=== PATIENT | female | born 1970 | race Caucasian/White ===

== ENCOUNTER → 2019-01-03 | Outpatient (CLI) | payer MEDICARE, MEDICAID ==
--- NOTE | 2019-01-03 14:04 | RADIOLOGY REPORT (SQ) ---
EXAM DESCRIPTION: L SPINE WHOLE COMPLETED DATE/TIME: 01/03/2019 12:49 pm REASON FOR STUDY: LOW BACK PAIN M54.5 LOW BACK PAIN M25.552 PAIN IN LEFT HIP COMPARISON: None. NUMBER OF VIEWS: Five views including obliques. TECHNIQUE: AP, lateral, oblique, and sacral radiographic images acquired of the lumbar spine. LIMITATIONS: None. FINDINGS: MINERALIZATION: Normal. SEGMENTATION: Normal. No transitional anatomy. ALIGNMENT: Normal. VERTEBRAE: Maintained height. No fracture or worrisome bone lesion. DISCS: Preserved height. No significant osteophytes or end plate irregularity. POSTERIOR ELEMENTS: Pedicles and facets are intact. No pars defect or posterior arch defects. HARDWARE: None in the spine. PARASPINAL SOFT TISSUES: Normal. PELVIS: Intact as visualized. No fractures or worrisome bone lesions. SI joints intact. OTHER: No other significant finding. IMPRESSION: NORMAL 5 VIEW LUMBAR SPINE. TECHNICAL DOCUMENTATION: JOB ID: [id number] [employer]- All Rights Reserved Reading location - IP/workstation name: [email or web address]
--- NOTE | 2019-01-03 14:08 | RADIOLOGY REPORT (SQ) ---
EXAM DESCRIPTION: HIP LEFT AP/LATERAL COMPLETED DATE/TIME: 01/03/2019 12:49 pm REASON FOR STUDY: L HIP PAIN M54.5 LOW BACK PAIN M25.552 PAIN IN LEFT HIP COMPARISON: None. NUMBER OF VIEWS: Two views. TECHNIQUE: AP pelvis and additional frog-leg view of the left hip. LIMITATIONS: None. FINDINGS: MINERALIZATION: Normal. LEFT HIP: No fracture or dislocation. No worrisome bone lesions. RIGHT HIP: No fracture or dislocation. No worrisome bone lesions. PUBIS AND ISCHIUM: No fracture. PELVIS: No fracture. SACRUM: No fracture or dislocation. No worrisome bone lesions. LOWER LUMBAR SPINE: No fracture or dislocation. No worrisome bone lesions. No significant disc disea se. SOFT TISSUES: No findings. OTHER: No other significant finding. IMPRESSION: NEGATIVE STUDY OF THE LEFT HIP AND PELVIS. NO RADIOGRAPHIC EVIDENCE OF ACUTE INJURY. TECHNICAL DOCUMENTATION: JOB ID: [id number] [employer]- All Rights Reserved Reading location - IP/workstation name: [email or web address]
== END ==
LOC: RAD 11:22
PROVIDERS: ATTEND Physician Assistant
DX: M54.5 Low back pain (principal); M25.552 Pain in left hip
CPT/HCPCS: 72110

== ENCOUNTER 2019-01-10 05:49 | Observation (INO) | payer MEDICARE, MEDICAID ==
[2019-01-10] MEDS ORDERED: ONDANSETRON HCL INJ/PF 4 MG/2 ML SDV IV ONE (06:31)
[2019-01-10] MEDS ORDERED: MORPHINE SULFATE 10 MG/ML INJ IV ONE (06:31)
[2019-01-10] MEDS ORDERED: NORMAL SALINE 1000 ML 1,000 ML IV ONE ×2 (06:31→09:23)
--- NOTE | 2019-01-10 06:43 | ER Document Report ---
ED General - General Chief Complaint: Abdominal Pain Stated Complaint: ABDOMINAL PAIN Time Seen by Provider: 01/10/19 06:14 TRAVEL OUTSIDE OF THE [place] IN LAST 30 DAYS: No - HPI Notes: Patient presents emergency department for evaluation of right lower quadrant pain. It started suddenly 2 days ago when she was getting out of a chair. It was intermittent and dull at first, now it is constant with intermittent stabbing. She has had some nausea but no emesis. Diminished appetite. Last bowel movement was 2 days ago. She states is not completely abnormal for her to have a space between these. She denies any dysuria, hematuria, urinary frequency. She has had a hysterectomy. She states her pain was made worse by the bumps in the car ride over here. - Related Data Allergies/Adverse Reactions: lithium Allergy (Verified 01/10/19 06:28) Past Medical History - General Information source: Patient - Social History Smoking Status: Former Smoker Family History: Malignancy - Bladder lung cancer in father Patient has suicidal ideation: No Patient has homicidal ideation: No Neurological Medical History: Reports: Hx Migraine Renal/ Medical History: Denies: Hx Peritoneal Dialysis Musculoskeletal Medical History: Reports Hx Arthritis Past Surgical History: Reports: Hx Section, Hx Hysterectomy, Hx Tubal Ligation Review of Systems - Review of Systems Constitutional: No symptoms reported EENT: No symptoms reported Cardiovascular: No symptoms reported Respiratory: No symptoms reported Gastrointestinal: See HPI Genitourinary: No symptoms reported Female Genitourinary: No symptoms reported Musculoskeletal: No symptoms reported Skin: No symptoms reported Neurological/Psychological: No symptoms reported Physical Exam - Vital signs Vitals: Temp Pulse Resp BP Pulse Ox 98.1 F 86 18 173/104 H 98 01/10/19 05:55 01/10/19 05:55 01/10/19 05:55 01/10/19 05:55 01/10/19 05:55 - Notes Notes: Vital signs reviewed, please refer to chart. Patient is normocephalic, atraumatic. Pupils equal round, reactive to light. Neck is supple without men ingismus. Heart is regular rate and rhythm. Lungs are clear to auscultation bilaterally. Abdomen is soft. Moderate right lower quadrant tenderness without rebound or guarding. Mild right upper quadrant and epigastric tendedrness to palpation. Negative psoas, negative Rovsing's. Extremities without cyanosis, clubbing, edema. Peripheral pulses are equal. Skin is warm and dry. Patient is awake, alert, neurological exam is nonfocal. Course - Re-evaluation Re-evalutation: 01/10/19 08:11 Patient presents to the emergency department for evaluation of abdominal pain. She points to the right lower quadrant as the source of the majority of her pain, but she does not fact have some right upper quadrant epigastric tenderness as well. Laboratory investigations ordered. Her lipase is found to be just over 3 times the upper limits of normal. CT scan was found to be unremarkable. Serial abdominal exams remain tender but nonsurgical. She does still have her gallbladder. Given this information I did order her right upper quadrant ultrasound. Patient is comfortable, will continue to follow. 01/10/19 09:22 Ultrasound of the right upper quadrant failed to reveal any significant abnormalities. Patient continues to have some pain. Spoke with Dr. Doyle who agrees with admission of the patient. I then gave report to Dr. Matias, he will admit the patient for further care. Further pain medication and IV fluids ordered, patient will be transferred to the floor. - Vital Signs Vital signs: Temp Pulse Resp BP Pulse Ox 98.1 F 86 18 161/90 H 95 01/10/19 05:55 01/10/19 05:55 01/10/19 05:55 01/10/19 08:01 01/10/19 08:01 - Laboratory Result Diagrams: 01/10/19 06:14 01/10/19 06:52 Laboratory results interpreted by me: 01/10/19 06:52 Est GFR (Non-Af Amer) 57 L Lipase 926.6 H Discharge - Discharge Clinical Impression: Acute pancreatitis Condition: Stable Disposition: ADMITTED OBSERVATION Admitting Provider: Isis Matias Unit Admitted: Medical Floor
[2019-01-10 07:05] LABS: ABSOLUTE BASOPHILS # (AUTO) 0.1 10^3/uL (0.0-0.2); ABSOLUTE EOSINOPHILS # (AUTO) 0.2 10^3/uL (0.0-0.6); ABSOLUTE LYMPHOCYTES (AUTO) 2.2 10^3/uL (0.5-4.7); ABSOLUTE MONOCYTES (AUTO) 0.6 10^3/uL (0.1-1.4); ABSOLUTE NEUT (AUTO) 4.1 10^3/uL (1.7-8.2); BASOPHILS % (AUTO) 0.8 % (0-2); EOSINOPHILS % (AUTO) 2.8 % (0-6); HEMOGLOBIN 14.1 g/dL (12.0-15.5); LYMPHOCYTES % (AUTO) 30.2 % (13-45); MEAN CORPUSCULAR HEMOGLOBIN 31.5 pg (27.0-33.4); MEAN CORPUSCULAR HGB CONC 35.1 g/dL (32.0-36.0); MEAN CORPUSCULAR VOLUME 90 fl (80-97); MONOCYTES % (AUTO) 8.3 % (3-13); PLATELET COUNT 250 10^3/uL (150-450); RED BLOOD COUNT 4.46 10^6/uL (3.72-5.28); SEGMENTED NEUTROPHILS % (AUTO) 57.9 % (42-78); TOTAL CELLS COUNTED % (AUTO) 100 %; WHITE BLOOD COUNT 7.1 10^3/uL (4.0-10.5)
[2019-01-10 07:26] LABS: ALANINE AMINOTRANSFERASE 18 U/L (9-52); ALBUMIN 4.1 g/dL (3.5-5.0); ALKALINE PHOSPHATASE 100 U/L (38-126); ANION GAP 11 (5-19); ASPARTATE AMINO TRANSFERASE 21 U/L (14-36); BILIRUBIN,DIRECT 0.1 mg/dL (0.0-0.4); BILIRUBIN,TOTAL 0.4 mg/dL (0.2-1.3); BLOOD UREA NITROGEN 16 mg/dL (7-20); CALCIUM 9.4 mg/dL (8.4-10.2); CARBON DIOXIDE 23 mmol/L (22-30); CHLORIDE 107 mmol/L (98-107); GLUCOSE 99 mg/dL (75-110); LIPASE 926.6 U/L (23-300); POTASSIUM 3.6 mmol/L (3.6-5.0); SODIUM 140.6 mmol/L (137-145); TOTAL PROTEIN 7.4 g/dL (6.3-8.2)
--- NOTE | 2019-01-10 07:34 | RADIOLOGY REPORT (SQ) ---
EXAM DESCRIPTION: CT ABDOMEN PELVIS WITHOUT IV CONTRAST COMPLETED DATE/TME: 01/10/2019 06:31 CLINICAL HISTORY: RLQ pain COMPARISON: None Available. TECHNIQUE: CT of the abdomen and pelvis without IV contrast. Evaluation of the solid organs and vasculature is suboptimal due to lack of IV contrast. DLP: 493.5 mGy-cm FINDINGS: Lung Bases: The visualized lung bases are clear. Bones: No destructive bone lesions identified. Abdomen: Liver: The liver has normal size and density. Gallbladder: No calcified gallstones. Spleen, Pancreas, and Adrenal Glands: The spleen, pancreas, and adrenal glands are unremarkable. Kidneys: The kidneys have normal size and contour without evidence of hydronephrosis. No obstructing ureteral calculi. Vasculature: Aortoiliac atherosclerosis. IVC is unremarkable. Stomach: The stomach and duodenum have normal course. Other: No free intraperitoneal air. No free fluid or lymphadenopathy. Pelvis: Bladder: Urinary bladder is unremarkable. Bowel: No dilated loops of large or small bowel. Appendix: Normal appendix. Pelvis: Prior hysterectomy. IMPRESSION: 1. No acute inflammatory or obstructive process identified. This exam was performed according to our departmental dose-optimization program, which includes automated exposure control, adjustment of the mA and/or kV according to patient size and/or use of iterative reconstruction technique.
[2019-01-10 07:36] LABS: APPEARANCE,URINE SLIGHTLY-CLOUDY; BILIRUBIN,URINE NEGATIVE (NEGATIVE); COLOR,URINE YELLOW; GLUCOSE, URINE NEGATIVE (NEGATIVE); KETONES,URINE NEGATIVE (NEGATIVE); LEUKOCYTE ESTERASE,URINE NEGATIVE (NEGATIVE); NITRITE,URINE NEGATIVE (NEGATIVE); PROTEIN,URINE NEGATIVE (NEGATIVE); URINE SPECIFIC GRAVITY 1.009; UROBILINOGEN,URINE NEGATIVE mg/dL (<2.0)
--- NOTE | 2019-01-10 09:12 | RADIOLOGY REPORT (SQ) ---
EXAM DESCRIPTION: U/S ABDOMEN LIMITED W/O DOP COMPLETED DATE/TIME: 01/10/2019 9:03 am REASON FOR STUDY: eval RUQ, elevated lipase COMPARISON: CT abdomen pelvis 01/10/2019 TECHNIQUE: Dynamic and static grayscale images acquired of the abdomen and recorded on PACS. Additio nal selected color Doppler and spectral images recorded. LIMITATIONS: Midline bowel gas FINDINGS: PANCREAS: Midline pancreas unremarkable LIVER: No masses. Echotexture normal. LIVER VASCULATURE: Normal directional flow of the main portal vein and hepatic veins. GALLBLADDER: No stones. Normal wall thickness. No pericholecystic fluid. ULTRASOUND-DETECTED JUÁREZ'S SIGN: Negative. INTRAHEPATIC DUCTS AND COMMON DUCT: CBD and intrahepatic ducts normal caliber. No filling defects. INFERIOR VENA CAVA: Normal flow. AORTA: No aneurysm. RIGHT KIDNEY: Normal size. Normal echogenicity. No solid or suspicious masses. No hydronephrosis. No calcifications. PERITONEAL AND RIGHT PLEURAL SPACE: No ascites or effusions. OTHER: No other significant findings. IMPRESSION: NORMAL RIGHT UPPER QUADRANT ULTRASOUND. TECHNICAL DOCUMENTATION: JOB ID: [id number] [employer]- All Rights Reserved Reading location - IP/workstation name: [email or web address]
[2019-01-10] MEDS ORDERED: HYDROMORPHONE HCL INJ/PF 2 MG/ML AMPULE IV ONE (09:18)
[2019-01-10] MEDS ORDERED: GLUCAGON,HUMAN RECOMB 1 MG INJ SUBCUT PRN (10:09)
[2019-01-10] MEDS ORDERED: ONDANSETRON HCL INJ/PF 4 MG/2 ML SDV IV PRN (10:09)
[2019-01-10] MEDS ORDERED: DEXTROSE 50%-WATER 25 GM/50 ML DISP.SYRIN IV PRN ×2 (10:09)
[2019-01-10] MEDS ORDERED: DEXTROSE 40% GEL 15 GM TUBE PO PRN ×2 (10:09)
[2019-01-10 11:28] LABS: CHOLESTEROL 307.35 mg/dL (0-200); TRIGLYCERIDES 135 mg/dL (<150)
[2019-01-10 11:39] LABS: DIRECT LDL 192 mg/dL (<100)
[2019-01-10] MEDS ORDERED: KETOROLAC TROMETHAMINE INJ/PF 30 MG/1 ML SDV IV ONE (16:30)
--- NOTE | 2019-01-10 16:31 | PDOC H&P ---
History of Present Illness Admission Date/PCP: 01/10/19 09:42 History of Present Illness: SINGH CAMPBELL is a 48 year old female with a history of fibromyalgia and functional abdominal pain who presents to the ER with a history of abdominal pain for the past few days. She felt like it was mostly in the right lower quadrant, but does seem to stop and what she feels like she has now has abdominal pain in the midepigastric region. She describes it as a dull aching pain. Nothing really makes it better or worse. She has not had any changes to her medications. She has not had anything out of the ordinary in her diet. She has been nauseated but no vomiting. No diarrhea. No blood in her stool. Her labs were unremarkable except for a lipase that was a little over 900. CT and abdominal ultrasound were unremarkable. She is being admitted for observation was for some IV fluids. Past Medical History Neurological Medical History: Reports: Migraine Musculoskeltal Medical History: Reports: Arthritis Psychiatric Medical History: Reports: Depression Past Surgical History Past Surgical History: Reports: Section, Hysterectomy, Tubal Ligation Social History Smoking Status: Never Smoker Frequency of Alcohol Use: None Hx Recreational Drug Use: No Drugs: None Hx Prescription Drug Abuse: No - Advance Directive Resuscitation Status: Full Code Family History Family History: Malignancy - Bladder lung cancer in father Parental Family History Reviewed: Yes Children Family History Reviewed: Yes Sibling(s) Family History Reviewed.: Yes Medication/Allergy Home Medications: Duloxetine HCl [Cymbalta] 60 mg PO DAILY 01/10/19 Estrogens,Conjugated [Premarin 0.625 Mg Tablet] 0.625 mg PO DAILY 01/10/19 Gabapentin [Neurontin 300 mg Capsule] 300 mg PO Q8 01/10/19 Hydrocodone/Acetaminophen [Johnson 10-325 mg Tablet] 1 tab PO QID 01/10/19 Topiramate [Trokendi Xr] 100 mg PO QHS 01/10/19 Trazodone HCl [Desyrel 50 mg Tablet] 50 mg PO QHS 01/10/19 Allergies/Adverse Reactions: lithium Allergy (Verified 01/10/19 06:28) Review of Systems All systems: reviewed and no additional remarkable complaints except as stated - All systems reviewed and were negative except as noted in the HPI Physical Exam Vital Signs: Temp Pulse Resp BP Pulse Ox 98.6 F 69 16 153/97 H 100 01/10/19 11:58 01/10/19 11:58 01/10/19 11:58 01/10/19 11:58 01/10/19 11:58 Intake & Output 01/09/19 01/10/19 01/11/19 06:59 06:59 06:59 Intake Total 1999 Balance 1999 Weight 70.6 kg General appearance: PRESENT: no acute distress, cooperative, disheveled, obese Head exam: PRESENT: atraumatic, normocephalic Eye exam: PRESENT: EOMI, PERRLA. ABSENT: conjunctival injection, nystagmus, scleral icterus Ear exam: PRESENT: normal external ear exam Mouth exam: PRESENT: moist, neck supple Teeth exam: PRESENT: poor dentation Throat exam: ABSENT: post pharyngeal erythema Neck exam: PRESENT: full ROM. ABSENT: carotid bruit, JVD, lymphadenopathy, meningismus, tenderness, thyromegaly Respiratory exam: PRESENT: clear to auscultation parth, symmetrical, unlabored. ABSENT: accessory muscle use, crackles, prolonged expiratory phas, rhonchi, tachypnea, wheezes Cardiovascular exam: PRESENT: RRR, +S1, +S2 Pulses: PRESENT: normal carotid pulses Vascular exam: PRESENT: normal capillary refill GI/Abdominal exam: PRESENT: normal bowel sounds, soft. ABSENT: distended, guarding, rebound, tenderness Extremities exam: ABSENT: clubbing, pedal edema Musculoskeletal exam: PRESENT: ambulatory, normal inspection. ABSENT: deformity Neurological exam: PRESENT: alert, awake, oriented to person, oriented to place, oriented to time, oriented to situation, CN II-XII grossly intact. ABSENT: motor sensory deficit Psychiatric exam: PRESENT: anxious Skin exam: PRESENT: dry, warm Results Laboratory Results: 01/10/19 06:14 01/10/19 06:52 01/10/19 01/10/19 01/10/19 06:14 06:14 06:52 WBC 7.1 RBC 4.46 Hgb 14.1 Hct 40.0 MCV 90 MCH 31.5 MCHC 35.1 RDW 12.0 Plt Count 250 Seg Neutrophils % 57.9 Lymphocytes % 30.2 Monocytes % 8.3 Eosinophils % 2.8 Basophils % 0.8 Absolute Neutrophils 4.1 Absolute Lymphocytes 2.2 Absolute Monocytes 0.6 Absolute Eosinophils 0.2 Absolute Basophils 0.1 Sodium Cancelled 140.6 Potassium Cancelled 3.6 Chloride Cancelled 107 Carbon Dioxide Cancelled 23 Anion Gap Cancelled 11 BUN Cancelled 16 Creatinine Cancelled 1.04 Est GFR ( Amer) Cancelled > 60 Est GFR (Non-Af Amer) Cancelled 57 L Glucose Cancelled 99 Calcium Cancelled 9.4 Total Bilirubin Cancelled 0.4 AST Cancelled 21 ALT Cancelled 18 Alkaline Phosphatase Cancelled 100 Total Protein Cancelled 7.4 Albumin Cancelled 4.1 Triglycerides Cholesterol LDL Cholesterol Direct VLDL Cholesterol HDL Cholesterol Lipase Cancelled 926.6 H Urine Color Urine Appearance Urine pH Ur Specific [place] Urine Protein Urine Glucose (UA) Urine Ketones Urine Blood Urine Nitrite Ur Leukocyte Esterase Urine WBC (Auto) Urine RBC (Auto) 01/10/19 01/10/19 06:52 07:05 WBC RBC Hgb Hct MCV MCH MCHC RDW Plt Count Seg Neutrophils % Lymphocytes % Monocytes % Eosinophils % Basophils % Absolute Neutrophils Absolute Lymphocytes Absolute Monocytes Absolute Eosinophils Absolute Basophils Sodium Potassium Chloride Carbon Dioxide Anion Gap BUN Creatinine Est GFR ( Amer) Est GFR (Non-Af Amer) Glucose Calcium Total Bilirubin AST ALT Alkaline Phosphatase Total Protein Albumin Triglycerides 135 Cholesterol 307.35 H LDL Cholesterol Direct 192 H VLDL Cholesterol 27.0 HDL Cholesterol 64 Lipase Urine Color YELLOW Urine Appearance SLIGHTLY-CLOUDY Urine pH 6.0 Ur Specific [place] 1.009 Urine Protein NEGATIVE Urine Glucose (UA) NEGATIVE Urine Ketones NEGATIVE Urine Blood NEGATIVE Urine Nitrite NEGATIVE Ur Leukocyte Esterase NEGATIVE Urine WBC (Auto) 8 Urine RBC (Auto) 2 Impressions: Abdomen/Pelvis CT 01/10/19 06:31 IMPRESSION: 1. No acute inflammatory or obstructive process identified. This exam was performed according to our departmental dose-optimization program, which includes automated exposure control, adjustment of the mA and/or kV according to patient size and/or use of iterative reconstruction technique. Abdomen Ultrasound 01/10/19 08:10 IMPRESSION: NORMAL RIGHT UPPER QUADRANT ULTRASOUND. Assessment and Plan - Diagnosis (1) Acute pancreatitis Qualifiers: Pancreatitis type: unspecified pancreatitis type Acute pancreatitis complication: unspecified Qualified Code(s): K85.90 - Acute pancreatitis without necrosis or infection, unspecified Is this a current diagnosis for this admission?: Yes Plan: No obvious cause at this point. She says that she has not had a drink in 7 years. She does not have a history of gallstones and as noted above the abdominal CT and the abdominal ultrasound were unremarkable. Possible she could have had a small stone and passed it. We will also check her triglycerides. We will give her some IV fluids and some antiemetics. We will repeat her blood work in the morning. - Time Time Spent with patient: 35 or more minutes - Approximately 55 minutes was spent performing history and physical and coordination of care
[2019-01-10] MEDS: RINGERS SOLUTION,LACTATED 1,000 ML IV PRN (16:45)
[2019-01-11] MEDS: RINGERS SOLUTION,LACTATED 1,000 ML IV PRN ×2 (00:05→08:29)
[2019-01-11] MEDS ORDERED: KETOROLAC TROMETHAMINE INJ/PF 30 MG/1 ML SDV IV PRN (00:15)
[2019-01-11 07:02] LABS: ANION GAP 6 (5-19); BLOOD UREA NITROGEN 9 mg/dL (7-20); CALCIUM 9.4 mg/dL (8.4-10.2); CARBON DIOXIDE 25 mmol/L (22-30); CHLORIDE 108 mmol/L (98-107); GLUCOSE 83 mg/dL (75-110); LIPASE 122.4 U/L (23-300); POTASSIUM 3.9 mmol/L (3.6-5.0); SODIUM 138.7 mmol/L (137-145)
--- NOTE | 2019-01-11 16:52 | PDOC DISCHARGE SUMMARY ---
General - Admit/Disc Date/PCP Admission Date/Primary Care Provider: 01/10/19 09:42 Discharge Date: 01/11/19 - Discharge Diagnosis (1) Acute pancreatitis Is this a current diagnosis for this admission?: Yes Summary: Resolved quickly with IV fluids and got rest - Additional Information Resuscitation Status: Full Code Discharge Diet: Cardiac Discharge Activity: Activity As Tolerated Home Medications: Duloxetine HCl [Cymbalta] 60 mg PO DAILY 01/10/19 Estrogens,Conjugated [Premarin 0.625 mg Tablet] 0.625 mg PO DAILY 01/10/19 Gabapentin [Neurontin 300 mg Capsule] 300 mg PO Q8 01/10/19 Hydrocodone/Acetaminophen [[place] 10-325 mg Tablet] 1 tab PO QID 01/10/19 Topiramate [Trokendi Xr] 100 mg PO QHS 01/10/19 Trazodone HCl [Desyrel 50 mg Tablet] 50 mg PO QHS 01/10/19 History of Present Illness History of Present Illness: SINGH CAMPBELL is a 48 year old female with a history of fibromyalgia and functional abdominal pain who presents to the ER with a history of abdominal pain for the past few days. She felt like it was mostly in the right lower quadrant, but does seem to stop and what she feels like she has now has abdominal pain in the midepigastric region. She describes it as a dull aching pain. Nothing really makes it better or worse. She has not had any changes to her medications. She has not had anything out of the ordinary in her diet. She has been nauseated but no vomiting. No diarrhea. No blood in her stool. Her labs were unremarkable except for a lipase that was a little over 900. CT and abdominal ultrasound were unremarkable. She is being admitted for observation was for some IV fluids. Hospital Course Hospital Course: She was put on got rest and given IV fluids. Her lipase returned to normal very quickly. She was able to eat and drink without difficulty. No obvious precipitating factor, possibly had passed a small gallstone. Her LDL was elevated, we talked about statin medication, I recommended that she consider starting 1. Right now she is on Premarin, and given her cholesterol panel recommended that she talk to her doctor about tapering off of it. She verbalized her understanding. Her labs and examination were reassuring and she was discharged in good condition. Physical Exam Vital Signs: Temp Pulse Resp BP Pulse Ox 98.8 F 73 16 169/92 H 100 01/11/19 15:12 01/11/19 15:12 01/11/19 15:12 01/11/19 15:12 01/11/19 15:12 Intake & Output 01/10/19 01/11/19 01/12/19 06:59 06:59 06:59 Intake Total 2917 1260 Balance 2917 1260 Weight 70.6 kg 71.2 kg General appearance: PRESENT: no acute distress, cooperative, disheveled, obese Respiratory exam: PRESENT: clear to auscultation parth, symmetrical, unlabored. ABSENT: accessory muscle use, crackles, prolonged expiratory phas, rhonchi, tachypnea, wheezes Cardiovascular exam: PRESENT: RRR, +S1, +S2 Pulses: PRESENT: normal carotid pulses Vascular exam: PRESENT: normal capillary refill GI/Abdominal exam: PRESENT: normal bowel sounds, soft. ABSENT: distended, guarding, rebound, tenderness Extremities exam: ABSENT: clubbing, pedal edema Musculoskeletal exam: PRESENT: ambulatory, normal inspection. ABSENT: deformity Results Laboratory Results: 01/10/19 06:14 01/11/19 04:59 01/11/19 04:59 Sodium 138.7 Potassium 3.9 Chloride 108 H Carbon Dioxide 25 Anion Gap 6 BUN 9 Creatinine 0.84 Est GFR ( Amer) > 60 Est GFR (Non-Af Amer) > 60 Glucose 83 Calcium 9.4 Lipase 122.4 Impressions: Abdomen/Pelvis CT 01/10/19 06:31 IMPRESSION: 1. No acute inflammatory or obstructive process identified. This exam was performed according to our departmental dose-optimization program, which includes automated exposure control, adjustment of the mA and/or kV according to patient size and/or use of iterative reconstruction technique. Abdomen Ultrasound 01/10/19 08:10 IMPRESSION: NORMAL RIGHT UPPER QUADRANT ULTRASOUND. Qualifiers - * PATIENT BEING DISCHARGED WITH ANY OF THE FOLLOWING DIAGNOSIS: No
[2019-01-11 17:16] VITALS: BP 153/97
== END 2019-01-11 17:50 | disposition home or self-care (01) ==
LOC: ER 05:49 → EH 09:42 → 4W 11:49
PROVIDERS: ADMIT Family Medicine; ATTEND Internal Medicine
DX: K85.90 Acute pancreatitis without necrosis or infection, unspecified (principal); E78.00 Pure hypercholesterolemia, unspecified; M79.7 Fibromyalgia; F32.9 Major depressive disorder, single episode, unspecified; G43.909 Migraine, unspecified, not intractable, without status migrainosus; Z79.899 Other long term (current) drug therapy; Z79.890 Hormone replacement therapy; Z98.51 Tubal ligation status; Z90.710 Acquired absence of both cervix and uterus; Z80.52 Family history of malignant neoplasm of bladder; Z87.891 Personal history of nicotine dependence
CPT/HCPCS: 99285; 96361; 96374; 96375; 36415 ×2; 83690 ×2; 85025; 80048; 80053; 81001; 80061; 76705; 74176; J1885 ×2; J2270; J1170; J2405; J7030; J7120 ×2

== ENCOUNTER 2019-02-09 12:31 | Emergency (ER) | payer MEDICARE, MEDICAID ==
[2019-02-09] MEDS ORDERED: ONDANSETRON 4 MG TAB.RAPDIS PO ONE (13:22)
--- NOTE | 2019-02-09 13:22 | ER Document Report ---
ED Medical Screen (RME) - General Chief Complaint: Abdominal Pain Stated Complaint: FLANK PAIN Time Seen by Provider: 02/09/19 13:21 Mode of Arrival: Ambulatory Information source: Patient Notes: 48-year-old female presents to ED for complaint of right flank pain. She states she has been seen recently for the right flank pain but were not able to respond anything on exam. She states she is just been nausea and vomiting for couple days. She has a history of fibromyalgia arthritis migraines and high blood pressure. She states she has had a hysterectomy. Patient is alert oriented respirations regular and unlabored speaking in full sentences with a even steady gait. I have greeted and performed a rapid initial assessment of this patient. A comprehensive ED assessment and evaluation of the patient, analysis of test results and completion of medical decision making process will be conducted by an additional ED providers. TRAVEL OUTSIDE OF THE [place] IN LAST 30 DAYS: No - Related Data Allergies/Adverse Reactions: lithium Allergy (Verified 02/09/19 12:38) Past Medical History - Social History Chew tobacco use (# tins/day): No Frequency of alcohol use: None Drug Abuse: Prescription drugs Neurological Medical History: Reports: Hx Migraine Renal/ Medical History: Denies: Hx Peritoneal Dialysis Musculoskeltal Medical History: Reports Hx Arthritis Psychiatric Medical History: Reports: Hx Depression Past Surgical History: Reports: Hx Section, Hx Hysterectomy, Hx Tubal Ligation Physical Exam - Vital signs Vitals: Temp Pulse Resp BP Pulse Ox 98.1 F 74 16 159/80 H 98 02/09/19 12:44 02/09/19 12:44 02/09/19 12:44 02/09/19 12:44 02/09/19 12:44 Course - Vital Signs Vital signs: Temp Pulse Resp BP Pulse Ox 98.1 F 74 16 159/80 H 98 02/09/19 12:44 02/09/19 12:44 02/09/19 12:44 02/09/19 12:44 02/09/19 12:44
--- NOTE | 2019-02-09 14:03 | RADIOLOGY REPORT (SQ) ---
EXAM DESCRIPTION: CT ABD/PELVIS NO ORAL OR IV COMPLETED DATE/TIME: 02/09/2019 1:50 pm REASON FOR STUDY: right flank pain COMPARISON: CT abdomen pelvis 01/10/2019 Abdominal ultrasound 01/10/2019 TECHNIQUE: CT scan of the abdomen and pelvis performed without intravenous or oral contrast. Images reviewed with lung, soft tissue, and bone windows. Reconstructed coronal and sagittal MPR images revi ewed. All images stored on PACS. All CT scanners at this facility use dose modulation, iterative reconstruction, and/or weight based d osing when appropriate to reduce radiation dose to as low as reasonably achievable (ALARA). [facility]: Dose Right [facility]: CareDose [facility]: Dose Right [facility]: Teradose 4D [facility]: [employer] RADIATION DOSE: CT Rad equipment meets quality standard of care and radiation dose reduction techniq ues were employed. CTDIvol: 6.8 mGy. DLP: 374 mGy-cm.mGy. LIMITATIONS: None. FINDINGS: LOWER CHEST: No significant findings. No nodules or infiltrates. NON-CONTRASTED LIVER, SPLEEN, ADRENALS: Evaluation limited by lack of IV contrast. No identified sign ificant masses. PANCREAS: No masses. No peripancreatic inflammatory changes. GALLBLADDER: No identified stones by CT criteria. No inflammatory changes to suggest cholecystitis. RIGHT KIDNEY AND URETER: No suspicious masses. Assessment limited by lack of IV contrast. No signif icant calcifications. No hydronephrosis or hydroureter. LEFT KIDNEY AND URETER: No suspicious masses. Assessment limited by lack of IV contrast. No signifi cant calcifications. No hydronephrosis or hydroureter. AORTA AND RETROPERITONEUM: No aneurysm. No retroperitoneal masses or adenopathy. BOWEL AND PERITONEAL CAVITY: No obvious masses or inflammatory changes. No free fluid.Large amount of stool in the colon particularly along the ascending colon and hepatic flexure APPENDIX: Normal. PELVIS, BLADDER, AND ABDOMINAL WALL:No abnormal masses. No free fluid. Bladder normal. Post hysterec sylvia BONES: No significant findings. OTHER: No other significant finding. IMPRESSION: Moderate stool in the right colon. Post hysterectomy. COMMENT: Quality ID # [id number]: Final reports with documentation of one or more dose reduction techniques (e.g., Automated exposure control, adjustment of the mA and/or kV according to patient size, use of iterative reconstruction technique) TECHNICAL DOCUMENTATION: JOB ID: [id number] [employer]- All Rights Reserved Reading location - IP/workstation name: [email or web address]
[2019-02-09 14:14] LABS: APPEARANCE,URINE CLOUDY; BILIRUBIN,URINE NEGATIVE (NEGATIVE); COLOR,URINE YELLOW; GLUCOSE, URINE NEGATIVE (NEGATIVE); KETONES,URINE NEGATIVE (NEGATIVE); LEUKOCYTE ESTERASE,URINE NEGATIVE (NEGATIVE); NITRITE,URINE NEGATIVE (NEGATIVE); PROTEIN,URINE NEGATIVE (NEGATIVE); URINE SPECIFIC GRAVITY 1.008; UROBILINOGEN,URINE NEGATIVE mg/dL (<2.0)
[2019-02-09 14:21] LABS: ABSOLUTE EOSINOPHILS # (AUTO) 0.1 10^3/uL (0.0-0.6); ABSOLUTE LYMPHOCYTES (AUTO) 1.9 10^3/uL (0.5-4.7); ABSOLUTE MONOCYTES (AUTO) 0.5 10^3/uL (0.1-1.4); ABSOLUTE NEUT (AUTO) 3.8 10^3/uL (1.7-8.2); BASOPHILS % (AUTO) 0.8 % (0-2); EOSINOPHILS % (AUTO) 2.2 % (0-6); HEMATOCRIT 39.5 % (36.0-47.0); HEMOGLOBIN 13.6 g/dL (12.0-15.5); LYMPHOCYTES % (AUTO) 29.5 % (13-45); MEAN CORPUSCULAR HEMOGLOBIN 31.2 pg (27.0-33.4); MEAN CORPUSCULAR HGB CONC 34.5 g/dL (32.0-36.0); MEAN CORPUSCULAR VOLUME 91 fl (80-97); PLATELET COUNT 256 10^3/uL (150-450); RED BLOOD COUNT 4.36 10^6/uL (3.72-5.28); RED CELL DISTRIBUTION WIDTH 12.3 % (11.5-14.0); SEGMENTED NEUTROPHILS % (AUTO) 59.5 % (42-78); TOTAL CELLS COUNTED % (AUTO) 100 %; WHITE BLOOD COUNT 6.4 10^3/uL (4.0-10.5)
[2019-02-09 14:40] LABS: ALANINE AMINOTRANSFERASE 21 U/L (9-52); ALBUMIN 4.3 g/dL (3.5-5.0); ALKALINE PHOSPHATASE 83 U/L (38-126); ANION GAP 7 (5-19); ASPARTATE AMINO TRANSFERASE 21 U/L (14-36); BILIRUBIN,DIRECT 0.2 mg/dL (0.0-0.4); BILIRUBIN,TOTAL 0.5 mg/dL (0.2-1.3); BLOOD UREA NITROGEN 15 mg/dL (7-20); CALCIUM 10.2 mg/dL (8.4-10.2); CARBON DIOXIDE 32 mmol/L (22-30); CHLORIDE 101 mmol/L (98-107); GLUCOSE 93 mg/dL (75-110); POTASSIUM 4.5 mmol/L (3.6-5.0); SODIUM 139.6 mmol/L (137-145); TOTAL PROTEIN 7.6 g/dL (6.3-8.2)
--- NOTE | 2019-02-09 15:10 | ER Document Report ---
ED General - General Chief Complaint: Abdominal Pain Stated Complaint: FLANK PAIN Time Seen by Provider: 02/09/19 13:21 Mode of Arrival: Ambulatory Notes: 48-year-old female presents to ED for complaint of right upper quadrant pain. She was recently seen here but there is no evidence of acute pathology. The pain has been present for 1 month but in the last 2 days she has been getting nauseated and vomited every time she ate. She denies fever, chills, headaches, dizziness or lightheadedness, shortness of breath or chest pain, denies constipation, denies urinary symptoms or abnormal vaginal discharge TRAVEL OUTSIDE OF THE [place] IN LAST 30 DAYS: No - Related Data Allergies/Adverse Reactions: lithium Allergy (Verified 02/09/19 12:38) Past Medical History - General Information source: Patient - Social History Smoking Status: Former Smoker Chew tobacco use (# tins/day): No Frequency of alcohol use: None Drug Abuse: Prescription drugs Family History: Malignancy - Bladder lung cancer in father Patient has suicidal ideation: No Patient has homicidal ideation: No Neurological Medical History: Reports: Hx Migraine Renal/ Medical History: Denies: Hx Peritoneal Dialysis Musculoskeletal Medical History: Reports Hx Arthritis Psychiatric Medical History: Reports: Hx Depression Past Surgical History: Reports: Hx Section, Hx Hysterectomy, Hx Tubal Ligation Review of Systems - Review of Systems Constitutional: See HPI EENT: No symptoms reported Cardiovascular: See HPI Respiratory: See HPI Gastrointestinal: See HPI Genitourinary: See HPI Female Genitourinary: See HPI Musculoskeletal: No symptoms reported Skin: No symptoms reported Hematologic/Lymphatic: No symptoms reported Neurological/Psychological: No symptoms reported Physical Exam - Vital signs Vitals: Temp Pulse Resp BP Pulse Ox 98.1 F 74 16 159/80 H 98 02/09/19 12:44 02/09/19 12:44 02/09/19 12:44 02/09/19 12:44 02/09/19 12:44 - Notes Notes: PHYSICAL EXAMINATION: Reviewed vital signs and charting by RN GENERAL: Alert, interacts well. No acute distress. HEAD: Normocephalic, atraumatic. EYES: Pupils equal and round. Extraocular movements intact. ENT: Oral mucosa moist, tongue midline. NECK: Full range of motion. Supple. Trachea midline. LUNGS: Clear to auscultation bilaterally, no wheezes, rales, or rhonchi. No respiratory distress. HEART: Regular rate and rhythm. No murmur ABDOMEN: soft, right upper quadrant tenderness to palpation non-distended. Bowel sounds present. no McBurney's point tenderness, no Kaur sign. EXTREMITIES: Moves all 4 extremities spontaneously. No edema, No cyanosis. Normal distal neurovascular exam BACK: No CVAT NEUROLOGIC: Oriented and appropriate. Normal speech. PSYCH: Normal affect, normal mood. SKIN: Warm, dry, normal turgor. No rashes or lesions noted. Course - Re-evaluation Re-evalutation: 02/09/19 15:11 Overall well-appearing and nontoxic. Patient with CT scan unremarkable for any pathology other than moderate stool in the right colon. She is having acute right upper quadrant pain on palpation, negative Kaur sign. CT not sensitive enough to identify gallstones. After discussion with patient she would like to go ahead and get a right upper quadrant ultrasound to determine if she is having gallstones. 02/09/19 16:06 Patient received ultrasound but I told her that I will discharge her and follow- up with results if there is anything concerning. Ultrasound results came back and there is no evidence of any gone bladder pathology. I phoned patient and told her the results. She was happy with the outcome. Was sent home with Zofran ODT tabs to help with nausea. I told her is unclear why she is having the symptoms as constipation typically does not cause nausea and vomiting. CT scan was unremarkable did not show any obstruction. Patient is safe and stable to discharge. - Vital Signs Vital signs: Temp Pulse Resp BP Pulse Ox 98.3 F 72 16 147/72 H 99 02/09/19 16:47 02/09/19 16:47 02/09/19 16:47 02/09/19 16:47 02/09/19 16:47 - Laboratory Result Diagrams: 02/09/19 13:40 02/09/19 13:40 Laboratory results interpreted by me: 02/09/19 02/09/19 13:40 13:40 Carbon Dioxide 32 H Creatinine 1.26 H Est GFR ( Amer) 55 L Est GFR (Non-Af Amer) 45 L Urine Blood SMALL H Discharge - Discharge Clinical Impression: Right upper quadrant abdominal pain Condition: Good Disposition: HOME, SELF-CARE Instructions: Antinausea Medication ([facility]), Gallbladder Disease ([facility]) Additional Instructions: You are seen in the emergency department this afternoon for right upper quadrant pain. CT scan did not show any concerning pathology. CT is not that sensitive though for gallstones which is why you got the ultrasound. As we discussed I will call you with the results of the ultrasound when they come back after you leave. If you have gallstones or anything that would require a meeting with the surgeon I will also advise you of that and give you the information over the phone. If you develop fever, chills, intractable nausea or vomiting, pass out, have blood in your vomit or bloody diarrhea please immediately return to the emergency department Forms: Return to Work Referrals: KEN RIVERA MD [ACTIVE STAFF] - Follow up as needed
[2019-02-09] MEDS ORDERED: ONDANSETRON ODT 4 MG TAB (6 TAB/ER DISP) PO PRN (16:11)
--- NOTE | 2019-02-09 16:46 | RADIOLOGY REPORT (SQ) ---
EXAM DESCRIPTION: U/S ABDOMEN LIMITED W/O DOP COMPLETED DATE/TIME: 02/09/2019 4:34 pm REASON FOR STUDY: RUQ pain COMPARISON: None. TECHNIQUE: Dynamic and static grayscale images acquired of the abdomen and recorded on PACS. Additio ro selected color Doppler and spectral images recorded. LIMITATIONS: None. FINDINGS: PANCREAS: No masses. Visualized pancreatic duct normal caliber. LIVER: No masses. Echotexture normal. LIVER VASCULATURE: Normal directional flow of the main portal vein and hepatic veins. GALLBLADDER: No stones. Normal wall thickness. No pericholecystic fluid. ULTRASOUND-DETECTED JUÁREZ'S SIGN: Negative. INTRAHEPATIC DUCTS AND COMMON DUCT: CBD and intrahepatic ducts normal caliber. No filling defects. INFERIOR VENA CAVA: Normal flow. AORTA: No aneurysm. RIGHT KIDNEY: Normal size. Normal echogenicity. No solid or suspicious masses. No hydronephrosis. No calcifications. PERITONEAL AND RIGHT PLEURAL SPACE: No ascites or effusions. OTHER: No other significant findings. IMPRESSION: NORMAL RIGHT UPPER QUADRANT ULTRASOUND. TECHNICAL DOCUMENTATION: JOB ID: [id number] [employer]- All Rights Reserved Reading location - IP/workstation name: [email or web address]
[2019-02-09 16:48] VITALS: BP 147/72
== END 2019-02-09 16:46 | disposition home or self-care (01) ==
LOC: ER 12:31
DX: R10.11 Right upper quadrant pain (principal); R11.2 Nausea with vomiting, unspecified; F19.10 Other psychoactive substance abuse, uncomplicated; Z88.8 Allergy status to other drugs, medicaments and biological substances; Z87.891 Personal history of nicotine dependence; Z98.51 Tubal ligation status; Z90.710 Acquired absence of both cervix and uterus
CPT/HCPCS: 99284; 36415; 83690; 85025; 80053; 81001; 76705; 74176; A9270; S0119

== ENCOUNTER 2020-02-18 10:33 | Emergency (ER) | payer MEDICARE, MEDICAID ==
--- NOTE | 2020-02-18 10:57 | ER Document Report ---
HPI - HPI Patient complains to provider of: right hand pain Time Seen by Provider: 02/18/20 10:52 Onset: Other - monday Onset/Duration: Persistent Quality of pain: Achy Context: 49-year-old female presents with complaints of right hand pain. Reports she used a tinsnip on Monday and it opened up suddenly snapping her thumb back. Patient reports pain since that time. Denies past medical history of injury to the thumb. No other complaints such as fever vomiting diarrhea. Associated Symptoms: None Exacerbated by: Denies Relieved by: Denies Similar symptoms previously: No Recently seen / treated by doctor: No - REPRODUCTIVE Reproductive: DENIES: : Past Medical History - General Information source: Patient - Social History Smoking Status: Former Smoker Frequency of alcohol use: None Drug Abuse: None Family History: Malignancy - Bladder lung cancer in father Patient has suicidal ideation: No Patient has homicidal ideation: No Neurological Medical History: Reports: Hx Migraine Renal/ Medical History: Denies: Hx Peritoneal Dialysis GI Medical History: Reports: Hx Pancreatitis Musculoskeletal Medical History: Reports Hx Arthritis, Reports Hx Fibromyalgia Psychiatric Medical History: Reports: Hx Depression Past Surgical History: Reports: Hx Section, Hx Hysterectomy, Hx Tubal Ligation Vertical Provider Document - CONSTITUTIONAL Agree With Documented VS: Yes Exam Limitations: No Limitations General Appearance: WD/WN, No Apparent Distress - INFECTION CONTROL TRAVEL OUTSIDE OF THE [place] IN LAST 30 DAYS: No - HEENT HEENT: Atraumatic, Normocephalic - NECK Neck: Supple - RESPIRATORY Respiratory: No Respiratory Distress - CARDIOVASCULAR Cardiovascular: Regular Rate - MUSCULOSKELETAL/EXTREMETIES Musculoskeletal/Extremeties: MAEW, FROM, Tender - right dorsal thumb ttp, no erythema, no swelling, no obvious deformity, cap refill <2 sec, radial pulse +3, flexes hand well, good chef - NEURO Level of Consciousness: Awake, Alert, Appropriate Motor/Sensory: No Motor Deficit - DERM Integumentary: Warm, Dry Course - Re-evaluation Re-evalutation: 02/18/20 11:29 49-year-old female presents with right hand pain after she was using some vice brick yard hand and it snapped back hurting her right thumb. Patient is right-handed. Patient declined Tylenol or Motrin. She reports she will take her hydrocodone that she takes 4 times a day for her fibromyalgia. 02/18/20 12:04 Hand X-Ray 02/18/20 10:56 IMPRESSION: NEGATIVE STUDY OF THE RIGHT HAND. NO RADIOGRAPHIC EVIDENCE OF ACUTE INJURY. 02/18/20 12:08 Patient instructed on negative x-ray. Reinaldo wrap placed for comfort. Patient instructed to follow-up with orthopedics for continued pain. She was also instructed to return the emergency department for any signs of infection, worsening condition. She verbalized understanding to all instructions. - Vital Signs Vital signs: Temp Pulse Resp BP Pulse Ox 98.9 F 87 16 166/106 H 97 02/18/20 10:38 02/18/20 10:38 02/18/20 10:38 02/18/20 10:38 02/18/20 10:38 - Diagnostic Test Radiology reviewed: Image reviewed, Reports reviewed Procedures - Immobilization Right Hand Pre-Proc Neuro Vasc Exam: Normal Immobilizer type: Reinaldo wrap Performed by: GEE thorne Post-Proc Neuro Vasc Exam: Unchanged from pre-exam Discharge - Discharge Clinical Impression: Right hand pain Condition: Stable Disposition: HOME, SELF-CARE Instructions: Use of [id number] Ibuprofen ([facility]), Ice & Elevation ([facility]) Additional Instructions: *You have been evaluated for right hand, thumb pain *Maintain the reinaldo wrap for comfort *Rest/Ice/Elevate your thumb *Follow up with orthopedics within one week for continued pain *Take ibuprofen as indicated for pain *Return to ED for worsening condition, changes, needs, redness, swelling Monitor your blood pressure. Your blood pressure was elevated today. This may be because you were anxious, in pain or because you need medication. It is important to follow up with your primary care provider for full evaluation. Forms: Elevated Blood Pressure
--- NOTE | 2020-02-18 11:59 | RADIOLOGY REPORT (SQ) ---
EXAM DESCRIPTION: HAND RIGHT 3 VIEWS IMAGES COMPLETED DATE/TIME: 02/18/2020 11:36 am REASON FOR STUDY: thumb pain COMPARISON: None. EXAM PARAMETERS: NUMBER OF VIEWS: Three views. TECHNIQUE: AP, lateral and oblique radiographic images acquired of the right hand. LIMITATIONS: None. FINDINGS: MINERALIZATION: Normal. BONES: No acute fracture or dislocation. No worrisome bone lesions. JOINTS: No effusions. SOFT TISSUES: No soft tissue swelling. No foreign body. OTHER: No other significant finding. IMPRESSION: NEGATIVE STUDY OF THE RIGHT HAND. NO RADIOGRAPHIC EVIDENCE OF ACUTE INJURY. TECHNICAL DOCUMENTATION: JOB ID: [id number] [employer]- All Rights Reserved Reading location - IP/workstation name: [email or web address]
[2020-02-18 12:03] VITALS: BP 159/98
== END 2020-02-18 12:13 | disposition home or self-care (01) ==
LOC: ER 10:33
DX: M79.641 Pain in right hand (principal); X50.0XXA Overexertion from strenuous movement or load, initial encounter; Y92.009 Unspecified place in unspecified non-institutional (private) residence as the place of occurrence of the external cause; M79.7 Fibromyalgia; Z79.891 Long term (current) use of opiate analgesic; Z87.891 Personal history of nicotine dependence
CPT/HCPCS: 99283

== ENCOUNTER 2020-03-25 20:29 | Emergency (ER) | payer MEDICARE, MEDICAID ==
[2020-03-25] MEDS ORDERED: NORMAL SALINE 1000 ML 1,000 ML IV ONE (22:31)
--- NOTE | 2020-03-25 22:32 | ER Document Report ---
ED Medical Screen (RME) - General Chief Complaint: Diarrhea Stated Complaint: DIARRHEA,BLOODY STOOLS,CHILLS Time Seen by Provider: 03/25/20 22:28 Notes: HPI: 49-year-old female presenting to the emergency department complaining of upper abdominal pain but multiple episodes of diarrhea that began around 11 PM last night. Patient states that she did turn on a light this morning and noticed that there was a lot of darker blood in the toilet. No black tarry stools. Patient reports the abdominal pain is in the epigastric right upper quadrant region. No prior history of similar discomfort. Patient is not on blood thinners PHYSICAL EXAMINATION: Mild tenderness in the epigastric right upper quadrant region on palpation but limited exam based on positioning in triage. Patient still mildly tachycardic with a heart rate of 117. Rectal exam deferred in triage I have greeted and performed a rapid initial assessment of this patient. A comprehensive ED assessment and evaluation of the patient, analysis of test results and completion of medical decision making process will be conducted by an additional ED providers. TRAVEL OUTSIDE OF THE [place] IN LAST 30 DAYS: No - Related Data Allergies/Adverse Reactions: niacin Allergy (Severe, Verified 03/25/20 22:27) Swelling of Throat lithium Allergy (Verified 03/25/20 22:27) Past Medical History Neurological Medical History: Reports: Hx Migraine Renal/ Medical History: Denies: Hx Peritoneal Dialysis GI Medical History: Reports: Hx Pancreatitis Musculoskeltal Medical History: Reports Hx Arthritis, Reports Hx Fibromyalgia Psychiatric Medical History: Reports: Hx Depression Past Surgical History: Reports: Hx Abdominal Surgery - laps several, Hx Section, Hx Hysterectomy, Hx Tubal Ligation Physical Exam - Vital signs Vitals: Temp Pulse Resp BP Pulse Ox 98.9 F 136 H 16 152/98 H 99 03/25/20 20:32 03/25/20 20:32 03/25/20 20:32 03/25/20 20:32 03/25/20 20:32 Course - Vital Signs Vital signs: Temp Pulse Resp BP Pulse Ox 98.9 F 136 H 16 152/98 H 99 03/25/20 20:32 03/25/20 20:32 03/25/20 20:32 03/25/20 20:32 03/25/20 20:32
[2020-03-25 23:13] LABS: APPEARANCE,URINE CLOUDY; BILIRUBIN,URINE NEGATIVE (NEGATIVE); COLOR,URINE YELLOW; GLUCOSE, URINE NEGATIVE (NEGATIVE); KETONES,URINE TRACE mg/dL (NEGATIVE); LEUKOCYTE ESTERASE,URINE NEGATIVE (NEGATIVE); NITRITE,URINE NEGATIVE (NEGATIVE); PROTEIN,URINE 30 mg/dL (NEGATIVE); URINE SPECIFIC GRAVITY 1.029; UROBILINOGEN,URINE NEGATIVE mg/dL (<2.0)
--- NOTE | 2020-03-25 23:34 | ER Document Report ---
ED General - General Chief Complaint: Rectal Bleeding Stated Complaint: DIARRHEA,BLOODY STOOLS,CHILLS Time Seen by Provider: 03/25/20 22:28 Information source: Patient TRAVEL OUTSIDE OF THE [place] IN LAST 30 DAYS: No - HPI Notes: 49-year-old female history of fibromyalgia, hydrocodone use presents with several episodes of bright red blood per rectum x1 day. Patient says that she had a difficult hard stool in the morning and with that she had some bright red blood mixed in with toilet after that she has had few loose stools have also had bright red blood and then few episodes of small amounts of bright red blood on their own without any stool. Patient also endorses some diffuse abdominal discomfort worse in bilateral lower quadrants x1 day. Patient denies any fever, dizziness, syncope, chest pain, shortness of breath, bleeding diatheses, anticoagulation, trauma, foreign bodies, sick contacts, travel, urinary symptoms, vaginal symptoms, prior episodes, recent antibiotics, recent hospitalizations, C. difficile history - Related Data Allergies/Adverse Reactions: niacin Allergy (Severe, Verified 03/25/20 22:27) Swelling of Throat lithium Allergy (Verified 03/25/20 22:27) Past Medical History - General Information source: Patient - Social History Smoking Status: Former Smoker Frequency of alcohol use: None Drug Abuse: None Family History: Malignancy - Bladder lung cancer in father Patient has homicidal ideation: No Neurological Medical History: Reports: Hx Migraine Renal/ Medical History: Denies: Hx Peritoneal Dialysis GI Medical History: Reports: Hx Pancreatitis Musculoskeletal Medical History: Reports Hx Arthritis, Reports Hx Fibromyalgia Psychiatric Medical History: Reports: Hx Depression Past Surgical History: Reports: Hx Abdominal Surgery - laps several, Hx Section, Hx Hysterectomy, Hx Tubal Ligation Review of Systems - Review of Systems Notes: REVIEW OF SYSTEMS: CONSTITUTIONAL : Denies fever, chills, or sweats. EENT: Denies recent cold/sinus symptoms, denies throat pain CARDIOVASCULAR: Denies chest pain, DAVID RESPIRATORY: Denies cough, denies shortness of breath. GASTROINTESTINAL: + abdominal pain, -nausea/vomiting. GENITOURINARY: Denies difficulty urinating, painful urination. FEMALE GENITOURINARY: Denies abnormal vaginal bleeding, vaginal discharge. MUSCULOSKELETAL: Denies neck pain, back pain. SKIN: Denies rash or skin lesions. HEMATOLOGIC : Denies easy bruising or bleeding. LYMPHATIC: Denies swollen, enlarged glands. NEUROLOGICAL: Denies headache, denies change in gait. PSYCHIATRIC: Denies anxiety or stress or depression. Physical Exam - Vital signs Vitals: Temp Pulse Resp BP Pulse Ox 98.9 F 136 H 16 152/98 H 99 03/25/20 20:32 03/25/20 20:32 03/25/20 20:32 03/25/20 20:32 03/25/20 20:32 - Notes Notes: PHYSICAL EXAMINATION: GENERAL: Well-appearing, well-nourished and in no acute distress. HEAD: Atraumatic, normocephalic. EYES: Pupils equal round and appropriate constriction, sclera anicteric, conjunctiva are normal. ENT: nares patent, moist mucous membranes. NECK: Normal range of motion, supple without lymphadenopathy LUNGS: Breath sounds clear to auscultation bilaterally and equal. No wheezes rales or rhonchi. HEART: Borderline tachycardic rate with regular rhythm, no murmurs ABDOMEN: Soft, mild discomfort on palpation of bilateral lower quadrants, no guarding, no masses, no CVAT. Nontender anus with normal inspection and scant dark blood in rectal vault without active bleeding EXTREMITIES: Normal range of motion, no pitting or edema. No cyanosis. NEUROLOGICAL: Awake, alert, conversing appropriately, moves all extremities spontaneously. PSYCH: Normal mood, normal affect. SKIN: Warm, Dry, normal turgor, no rashes or lesions noted. Course - Re-evaluation Re-evalutation: 03/25/20 23:39 Several episodes of painless bright red blood per rectum associated with lower abdominal pain. Patient very well-appearing, tachycardia on initial triage vitals has nearly resolved at time of initial evaluation without any intervention. Benign abdominal exam but given patient's age and bleeding with lower abdominal pain will obtain CT abdomen pelvis to rule out diverticulitis. Will assess hemoglobin and coags, observe patient in ED for several hours to ensure that bleeding has stabilized, and likely DC with GI follow-up and return precautions. 03/26/20 02:[address] without any sign of complication. Patient without any C. difficile risk factors. Abdominal exam remains benign, no episodes of bleeding in the ED. informed patient of several findings on lab work including mild crea tinine elevation and proteinuria, and elevated blood pressure and instructed her to follow these up with her primary doctor. Gave return to ED precautions which she demonstrated understanding of. Patient ready for discharge with PCP follow- up and antibiotics. 03/26/20 07:14 - Vital Signs Vital signs: Temp Pulse Resp BP Pulse Ox 98.8 F 117 H 17 141/86 H 97 03/26/20 03:04 03/25/20 22:28 03/26/20 03:01 03/26/20 03:01 03/26/20 03:01 - Laboratory Result Diagrams: 03/25/20 23:22 03/25/20 23:22 Laboratory results interpreted by me: 03/25/20 03/25/20 03/25/20 22:34 23:22 23:22 WBC 14.5 H Absolute Neuts (auto) 10.9 H Creatinine 1.28 H Est GFR ( Amer) 54 L Est GFR (MDRD) Non-Af 44 L Glucose 140 H Urine Protein 30 H Urine Ketones TRACE H Discharge - Discharge Clinical Impression: Colitis Condition: Stable Disposition: HOME, SELF-CARE Additional Instructions: Colitis, Nonspecific Colitis is an inflammatory disease of the large intestine which affects the lining of the bowel. The cause is uncertain, though it is often caused by an infection. In some cases, the symptoms resolve and can return again in the future. Colitis is characterized by abdominal pain, often nausea and vomiting, and either diarrhea or difficulty with bowel movements. Sometimes blood will be present in the bowel movements. Fever is often present as well. Milder cases of colitis can be managed as an outpatient with medications for nausea and vomiting and pain, oral fluid therapy, and perhaps antibiotics, if a bacterial origin is suspected. Antidiarrhea medicine should usually be avoided in colitis. If you have increasing abdominal pain, repeated vomiting, fever, rectal bleeding, or worsening diarrhea, you should return for re-evaluation. Your blood pressure was elevated in the ED at 141/128. Your creatinine, a measure of your kidney function, was also normal at 1.28. You also had protein in your urine. Follow these findings up with your primary doctor within 1 week. Take all antibiotics as prescribed. If you have worsening blood in stool, worsening pain, dizziness, fainting, chest pain, trouble breathing, or any other worsening or alarming symptoms return to the ED immediately. Prescriptions: Ciprofloxacin HCl [Cipro 500 mg Tablet] 500 mg PO BID #20 tablet Metronidazole [Flagyl 500 mg Tablet] 500 mg PO Q8H #30 tablet
[2020-03-25 23:39] LABS: ABSOLUTE BASOPHILS # (AUTO) 0.2 10^3/uL (0.0-0.2); ABSOLUTE EOSINOPHILS # (AUTO) 0.1 10^3/uL (0.0-0.6); ABSOLUTE LYMPHOCYTES (AUTO) 2.4 10^3/uL (0.5-4.7); ABSOLUTE MONOCYTES (AUTO) 1.1 10^3/uL (0.1-1.4); ABSOLUTE NEUT (AUTO) 10.9 10^3/uL (1.7-8.2); BASOPHILS % (AUTO) 1.1 % (0-2); EOSINOPHILS % (AUTO) 0.5 % (0-6); HEMOGLOBIN 15.1 g/dL (12.0-15.5); LYMPHOCYTES % (AUTO) 16.4 % (13-45); MEAN CORPUSCULAR HGB CONC 34.3 g/dL (32.0-36.0); MEAN CORPUSCULAR VOLUME 90 fl (80-97); MONOCYTES % (AUTO) 7.3 % (3-13); PLATELET COUNT 280 10^3/uL (150-450); RED BLOOD COUNT 4.86 10^6/uL (3.72-5.28); RED CELL DISTRIBUTION WIDTH 12.8 % (11.5-14.0); SEGMENTED NEUTROPHILS % (AUTO) 74.7 % (42-78); TOTAL CELLS COUNTED % (AUTO) 100 %; WHITE BLOOD COUNT 14.5 10^3/uL (4.0-10.5)
[2020-03-25 23:46] LABS: INTERNATIONAL RATION (INR) 1.07
[2020-03-25 23:47] LABS: PARTIAL THROMBOPLASTIN TIME 28.2 SEC (23.5-35.8)
[2020-03-25 23:55] LABS: ALBUMIN 4.8 g/dL (3.5-5.0); ALKALINE PHOSPHATASE 116 U/L (38-126); ANION GAP 8 (5-19); ASPARTATE AMINO TRANSFERASE 19 U/L (14-36); BILIRUBIN,TOTAL 0.7 mg/dL (0.2-1.3); BLOOD UREA NITROGEN 18 mg/dL (7-20); CALCIUM 10.1 mg/dL (8.4-10.2); CARBON DIOXIDE 28 mmol/L (22-30); CHLORIDE 102 mmol/L (98-107); GLUCOSE 140 mg/dL (75-110); TOTAL PROTEIN 8.1 g/dL (6.3-8.2)
[2020-03-26] MEDS ORDERED: KETOROLAC TROMETHAMINE INJ/PF 30 MG/1 ML SDV IV ONE (00:57)
[2020-03-26] MEDS ORDERED: ONDANSETRON HCL INJ/PF 4 MG/2 ML SDV IV ONE (00:57)
--- NOTE | 2020-03-26 02:13 | RADIOLOGY REPORT (SQ) ---
EXAM CLINICAL INDICATION: brbpr lower abd pain. CREAT 1.28. . TECHNIQUE: Contrast enhanced spiral axial CT imaging was obtained of the abdomen and pelvis with multiplanar reconstructions. This exam was performed according to our departmental dose-optimization program, which includes automated exposure control, adjustment of the mA and/or kV according to patient size and/or use of iterative reconstruction techniques. COMPARISON: February 09, 2019. CORRELATION: None. FINDINGS: Abdomen: The lung bases are grossly clear. Minimal dependent atelectasis.. The heart is of normal size. No evidence of pleural or pericardial fluid. The liver is homogeneous. The gallbladder is nondistended without inflammatory change. The pancreas is unremarkable. The spleen is unremarkable. The adrenals are unremarkable. The kidneys appear grossly normal without evidence of urolithiasis or hydronephrosis. There is no evidence of free air. No free fluid. No bulky adenopathy. Abdominal aorta is nonaneurysmal. Although not a dedicated arteriography examination, superior mesenteric artery and inferior mesenteric artery appear patent centrally Pelvis: The bowel is nonobstructed. Contrast is seen within small bowel and proximal colon. Inflammatory changes of the left hemicolon.. Pelvic contents are unremarkable. The appendix is normal. Visualized bones are unremarkable. IMPRESSION: Colitis of the left hemicolon, likely causing the patient's symptoms.
[2020-03-26] MEDS ORDERED: CIPROFLOXACIN HCL 500 MG TABLET PO ONE (02:44)
[2020-03-26] MEDS ORDERED: METRONIDAZOLE 500 MG TABLET PO ONE (02:44)
[2020-03-26 03:04] VITALS: BP 141/86
== END 2020-03-26 03:16 | disposition home or self-care (01) ==
LOC: ER 20:29
DX: K52.9 Noninfective gastroenteritis and colitis, unspecified (principal); K62.5 Hemorrhage of anus and rectum; R80.9 Proteinuria, unspecified; R79.89 Other specified abnormal findings of blood chemistry; Z87.891 Personal history of nicotine dependence; Z88.8 Allergy status to other drugs, medicaments and biological substances
CPT/HCPCS: 99284; 86900; 86901; 36415; 86850; 83690; 85025; 85610; 85730; 80053; 81001; 74177; A9270 ×2; J1885; J2405; J7030

== ENCOUNTER 2020-06-02 08:11 | Emergency (ER) | payer MEDICARE, MEDICAID ==
--- NOTE | 2020-06-02 10:29 | ER Document Report ---
Entered by KETTY HARGROVE SCRIBE 06/02/20 1003 Acting as scribe for:MARIAH WELSH MD ED Neck/Back Problem - General Chief Complaint: Back Pain Stated Complaint: LEG PAIN Time Seen by Provider: 06/02/20 09:43 Mode of Arrival: Ambulatory Information source: Patient Notes: This 49-year-old female patient with fibromyalgia, arthritis, and migraine headaches in pain management last filling a prescription for #120 Hydrocodone 10mg on May 13 presents to the emergency department today with complaints of back pain which began yesterday and increased this morning at 3:00 AM. Patient reports that at 3:00 AM she woke up to go to the bathroom and had a searing pain that radiated down her left leg. She is not able to identify whether the pain went below her knee or not. She denies saddle anesthesia or bowel/bladder incontinence. TRAVEL OUTSIDE OF THE [place] IN LAST 30 DAYS: No - Related Data Allergies/Adverse Reactions: niacin Allergy (Severe, Verified 03/25/20 22:27) Swelling of Throat lithium Allergy (Verified 03/25/20 22:27) Past Medical History - General Information source: Patient - Social History Smoking Status: Never Smoker Cigarette use (# per day): No Frequency of alcohol use: None Drug Abuse: None Occupation: [employer] Driver Lives with: Family Family History: Reviewed & Not Pertinent, Malignancy - Bladder lung cancer in father Neurological Medical History: Reports: Hx Migraine GI Medical History: Reports: Hx Pancreatitis Musculoskeletal Medical History: Reports Hx Arthritis, Reports Hx Fibromyalgia Psychiatric Medical History: Reports: Hx Depression Past Surgical History: Reports: Hx Abdominal Surgery - laps several, Hx Section, Hx Hysterectomy, Hx Tubal Ligation Review of Systems - Review of Systems Constitutional: No symptoms reported EENT: No symptoms reported Cardiovascular: No symptoms reported Respiratory: No symptoms reported Gastrointestinal: No symptoms reported Genitourinary: No symptoms reported Female Genitourinary: No symptoms reported Musculoskeletal: See HPI, Back pain Skin: No symptoms reported Hematologic/Lymphatic: No symptoms reported Neurological/Psychological: See HPI, Other - no bladder/bowel incontinence or saddle anesthesia -: Yes All other systems reviewed and negative Physical Exam - Vital signs Vitals: Temp Pulse Resp BP Pulse Ox 98.1 F 61 18 153/87 H 100 06/02/20 08:17 06/02/20 08:17 06/02/20 08:17 06/02/20 08:17 06/02/20 08:17 - Notes Notes: Physical Exam: General: Alert, appears well. HEENT: Normocephalic. Atraumatic. PERRL. Extraocular movements intact. Oropharynx clear. Neck: Supple. Non-tender. Respiratory: No respiratory distress. Clear and equal breath sounds bilaterally. Cardiovascular: Regular rate and rhythm. Abdominal: Normal Inspection. Non-tender. No distension. Normal Bowel Sounds. Back: Mild lumbar musculature tenderness with palpation, increased tenderness around the sacral muscles. Straight leg raise on the right up to 90 causes mild lower back pain. Straight leg raise on the left up to 90 causes pain shooting down the back of her left leg and low back. When the posterior left leg is palpated proximal to the popliteal space over the distal thigh she gets shooting pain to her lateral hip and buttock. Extremities: Moves all four extremities. Upper extremities: Normal inspection. Normal ROM. Lower extremities: Normal inspection. No edema. Normal ROM. Neurological: Normal cognition. AAOx4. Normal speech. Psychological: Normal affect. Normal Mood. Skin: Warm. Dry. Normal color. Course - Vital Signs Vital signs: Temp Pulse Resp BP Pulse Ox 98.1 F 61 18 153/87 H 100 06/02/20 08:17 06/02/20 08:17 06/02/20 08:17 06/02/20 08:17 06/02/20 08:17 - Diagnostic Test Radiology reviewed: Image reviewed, Reports reviewed - MRI of the lumbar spine is normal. Discharge - Discharge Clinical Impression: Low back pain Qualifiers: Chronicity: acute Back pain laterality: left Sciatica presence: without sciatica Qualified Code(s): M54.5 - Low back pain Condition: Stable Disposition: HOME, SELF-CARE Additional Instructions: Low Back Pain Three out of every four people will have an episode of disabling back pain during their lifetime. Most commonly the pain is due to straining of the muscles and ligaments in the low back. Usual treatment includes: (1) Rest on a firm surface. Avoid lying on your stomach. (2) Ice pack the painful area. After a few days, gentle heat may be used intermittently to relax the area, or ice packs can be continued. (3) Medication may be needed -- muscle relaxers and antiinflammatory medicines are commonly used. (4) As the back improves, exercises are prescribed to strengthen the back and abdominal muscles. Your doctor will advise you on the proper care for your back at each stage in your recovery. You may be better in a few days -- or healing may take sev eral weeks. If new symptoms of a "herniated disc" (radiation of pain, numbness, or tingling down the back of the leg or weakness in the leg) occur, you should be re-examined. Further testing may be necessary. The lumbar spine MRI was completely normal. There were no bulging disks or any other explanation for the pain you are having. The discomfort you are having is most likely related to the muscles and ligaments in your lower back and in your posterior thigh on the left. Continue your regular medications. Limit activities that make the pain worse. Follow-up with your primary care provider if not improving. RETURN TO THE EMERGENCY ROOM IF ANY NEW OR WORSENING SYMPTOMS. I personally performed the services described in the documentation, reviewed and edited the documentation which was dictated to the scribe in my presence, and it accurately records my words and actions.
--- NOTE | 2020-06-02 11:16 | RADIOLOGY REPORT (SQ) ---
EXAM DESCRIPTION: MRI LUMBAR SPINE WITHOUT IMAGES COMPLETED DATE/TIME: 06/02/2020 10:59 am REASON FOR STUDY: L s1,s2 radicular pain COMPARISON: None. TECHNIQUE: Sagittal and Axial imaging includes T1, T2, STIR and gradient echo sequences. Coronal T2/ HASTE imaging. LIMITATIONS: None. FINDINGS: VISUALIZED UPPER ABDOMEN: Limited evaluation. No acute or suspicious findings suggested. SEGMENTATION: No transitional anatomy. The lowest well-developed disc space is labeled L5-S1. ALIGNMENT: Anatomic. VERTEBRAE: Intact. BONE MARROW: Normal. No marrow replacement or reactive changes. DISC SIGNAL: Normal. No significant abnormal signal or loss of height. POSTERIOR ELEMENTS: Generally intact. No pars defect evident. Mild lower lumbar facet arthropathy. HARDWARE: None in the spine. CORD AND CONUS: Normal in size and signal intensity. Conus at the appropriate level. SOFT TISSUES: No aortic aneurysm seen. No bulky retroperitoneal adenopathy or mass. No paraspinal mas s or fluid. L1-L2: No significant spinal stenosis or exit foraminal stenosis. L2-L3: No significant spinal stenosis or exit foraminal stenosis. L3-L4: No significant spinal stenosis or exit foraminal stenosis. L4-L5: No significant spinal stenosis or exit foraminal stenosis. L5-S1: No significant spinal stenosis or exit foraminal stenosis. LOWER THORACIC: Incompletely imaged. No stenosis seen. SACRUM: Visualized upper sacrum intact. OTHER: No other significant findings. IMPRESSION: NORMAL MRI LUMBAR SPINE. TECHNICAL DOCUMENTATION: JOB ID: [id number] 2010 [employer]- All Rights Reserved Reading location - IP/workstation name: [email or web address]
[2020-06-02 12:12] VITALS: BP 150/95
== END 2020-06-02 12:12 | disposition home or self-care (01) ==
LOC: ER 08:11
DX: M79.7 Fibromyalgia (principal); M19.90 Unspecified osteoarthritis, unspecified site; M54.5 Low back pain; M79.605 Pain in left leg; Z79.891 Long term (current) use of opiate analgesic; Z88.8 Allergy status to other drugs, medicaments and biological substances
CPT/HCPCS: 72148; 99284